=== PATIENT | female | born 1985 | race African-American/Black ===

== ENCOUNTER 2018-01-31 14:39 | Outpatient (CLI) | END 2018-01-31 17:50 | disposition home or self-care (01) ==

== ENCOUNTER 2018-04-04 14:45 | Inpatient (IN) | END 2018-04-08 16:05 | disposition home or self-care (01) | DRG 765 ==

== ENCOUNTER 2018-10-22 16:37 | Emergency (ER) | payer SELFPAY ==
[~2018-10-22] VITALS: Ht 180.3 cm; Wt 72.0 kg
[~2018-10-22 16:37] MED LIST: PNV11TAB5 PO
[2018-10-22 16:47] VITALS: BP 132/64; PULSE 109; RESP 20; Ht 180.3 cm; Wt 72.0 kg
== END 2018-10-22 21:00 | disposition left against medical advice (07) ==
LOC: FTE 16:37
DX: Z53.21 Procedure and treatment not carried out due to patient leaving prior to being seen by health care provider (principal)